=== PATIENT | male | born 1990 | race Caucasian/White ===

== ENCOUNTER 2021-05-27 08:52 | Emergency (ER) | payer OTHER ==
[~2021-05-27] VITALS: Ht 165.1 cm; Wt 81.6 kg
[2021-05-27 08:55] VITALS: BP_SYST 130
--- NOTE | 2021-05-27 08:55 | NUR ---
Dr. Pineda at bedside to assess.
--- NOTE | 2021-05-27 08:55 | NUR ---
Pt to bed 7 for evaluation.
--- NOTE | 2021-05-27 08:58 | NUR ---
Pt AAO and arrived by wheelchair reporting right knee pain. Pt states that his right ankle gave out and when he was getting up , he heard something pop by his knee. Pt report pain to be 10/10 on pain scale. Pt denies having any prior medical history.
[2021-05-27] MEDS ORDERED: KETOROLAC TROMETHAMINE 60 MG/2 ML VIAL IM ONE (09:00)
[2021-05-27] MEDS ORDERED: HYDROcodone/ACETAMIN 10-325 MG TAB PO ONE (09:00)
--- NOTE | 2021-05-27 09:25 | NUR ---
Pt back from radiology.
[2021-05-27] MEDS ORDERED: IBUP-1971 PO (10:40)
[2021-05-27 11:02] VITALS: BP_SYST 130
--- NOTE | 2021-05-27 11:02 | NUR ---
Patient given written and verbal discharge instructions and verbalizes understanding. Dr. Edwin MONET MD discussed with patient the results and treatment provided. Patient in stable condition. ID arm band removed. Rx of ibuprofen given. Patient educated on pain management and to follow up with PMD. Pain Scale 0/10. Opportunity for questions provided and answered. Medication side effect fact sheet provided.
== END 2021-05-27 11:02 | disposition home or self-care (01) ==
LOC: SED 08:52
DX: S83.91XA Sprain of unspecified site of right knee, initial encounter (principal); Z79.899 Other long term (current) drug therapy; X50.0XXA Overexertion from strenuous movement or load, initial encounter; Y93.89 Activity, other specified; Y92.89 Other specified places as the place of occurrence of the external cause; Y99.8 Other external cause status
CPT/HCPCS: 29505; 73564; 96372; 99283; J1885

== ENCOUNTER 2023-01-21 02:20 | Emergency (ER) | payer OTHER ==
[~2023-01-21] VITALS: Ht 165.1 cm; Wt 79.4 kg
[~2023-01-21 02:20] MED LIST: IBUP-1971 PO
[2023-01-21 02:25] VITALS: BP_SYST 174
--- NOTE | 2023-01-21 02:39 | NUR ---
PATIENT PRESENTS WITH CHEST PAIN, STATING THE LEFT SIDE OF CHEST "FEELS HOT", 5/10 PAIN, PAIN IS INTERMITTENT, REPORT GIVEN TO [facility] AT THIS TIME, PATIENT PLACED IN ED BED 8
--- NOTE | 2023-01-21 02:41 | NUR ---
PT BIB FATHER FROM HOME C/O CHEST PAIN THAT DOES NO RADIATE /. PT STATES PAIN IS THROBBING. PT STATES HAS SOME WARM SENSATIONS THAT MOVE DOWN BOTH ARMS. PT DENIES OTHER HEALTH HX. PT ON MONITOR WITH VSS RESTING COMFORTABLY
--- NOTE | 2023-01-21 02:50 | NUR ---
ER at bedside examining patient.
[2023-01-21] MEDS ORDERED: MAG-AL HYDROX/SIMETH 30 ML UDC PO ONE (03:00)
[2023-01-21 03:08] LABS: BASOPHILS # (AUTO) 0.1 K/uL (0.0-0.2); BASOPHILS % (AUTO) 0.6 % (0.0-2.0); EOSINOPHILS # (AUTO) 0.1 K/uL (0.0-0.4); EOSINOPHILS % (AUTO) 1.1 % (0.0-4.0); HEMATOCRIT 44.7 % (36-54); HEMOGLOBIN 14.9 g/dL (14.0-18.0); LYMPHOCYTES # (AUTO) 3.3 K/uL (1.0-5.5); LYMPHOCYTES % (AUTO) 31.3 % (20.5-51.5); MEAN CORPUSCULAR HEMOGLOBIN 31 pg (27-31); MEAN CORPUSCULAR HGB CONC 33 % (32-36); MEAN CORPUSCULAR VOLUME 91 fL (79.0-98.0); MONOCYTES # (AUTO) 0.6 K/uL (0.0-1.0); NEUTROPHILS # (AUTO) 6.3 K/uL (1.8-7.7); PLATELET COUNT (AUTO) 362 K/uL (130-430); RED CELL DISTRIBUTION WIDTH 12.8 % (9.0-15.0); WHITE BLOOD COUNT (AUTO) 10.4 K/uL (4.8-10.8)
[2023-01-21 03:24] LABS: ANION GAP 10 (5-15); CALCIUM 8.6 mg/dL (8.4-11.0); CHLORIDE 98 mmol/L (98-107); CREATININE 0.73 mg/dL (0.55-1.30); GFR AFRICAN AMERICAN 158 mL/min (>90); GLUCOSE 104 mg/dL (74-106); UREA NITROGEN, BLOOD 11 mg/dL (8-21)
[2023-01-21 03:31] LABS: ALANINE AMINOTRANSFERASE 94 U/L (12-78); ASPARTATE AMINOTRANSFERASE 29 U/L (10-37); PHOSPHORUS 3.2 mg/dL (2.7-4.5); TOTAL BILIRUBIN 0.6 mg/dL (0.0-1.0)
[2023-01-21 03:39] VITALS: BP_SYST 147
--- NOTE | 2023-01-21 03:49 | NUR ---
Patient given written and verbal discharge instructions and verbalizes understanding. ER MD discussed with patient the results and treatment provided. Patient in stable condition. ID arm band removed. Rx of given. Patient educated on NONSPECIFIC CHEST PAIN and to follow up with PMD. Pain Scale . Opportunity for questions provided and answered. Medication side effect fact sheet provided.
== END 2023-01-21 03:39 | disposition home or self-care (01) ==
LOC: SED 02:20
DX: R07.89 Other chest pain (principal); R00.2 Palpitations; M79.602 Pain in left arm; Z79.899 Other long term (current) drug therapy
CPT/HCPCS: 36415; 71046-TC; 80053; 83735; 84100; 84484; 85025; 99284